=== PATIENT | male | born 1970 | race Caucasian/White ===

== ENCOUNTER 2025-07-26 18:21 | Emergency (ER) | payer OTHER, SELFPAY ==
--- NOTE | ~2025-07-26 | XR_ITS ---
CLINICAL HISTORY: knee pain 3 view right knee Comparison: None provided Findings: Bones intact. No dislocations. Mild/early tricompartmental degenerative changes. Small suprapatellar joint effusion. No radiopaque foreign body. IMPRESSION: 1. Small suprapatellar joint effusion. 2. No acute fracture or dislocation. This document has been electronically signed by: Dimple Seth DO on 07/26/2025 19:27:24
[2025-07-26 18:39] VITALS: BP 140/83; PULSE 93; RESP 20; TEMP 36.1; O2SAT 94; BMI 46.3
--- NOTE | 2025-07-26 18:40 | ED_ITS ---
HPI - Extremity Injury (Lower) General Chief Complaint: Extremity Injury, Lower Stated Complaint: injury to the rt knee Time Seen by Provider: 07/26/25 19:29 Source: patient and RN notes reviewed Mode of arrival: ambulatory Limitations: no limitations History of Present Illness ED Provider: Mirian Guillen PA-C HPI Narrative: This is a 54-year-old male, with no known medical problems, who presents emergency department with concerns of acute on chronic right knee pain. 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 He immediately had pain in his knee. He states pain with weight-bearing. He has not taken any medications prior to his arrival here in the emergency room. Pain worsens with weight-bearing. No other complaints or concerns at this time. MD complaint: knee injury Onset (ago): hour(s) Severity: moderate Relieving factors: rest Exacerbating factors: weight bearing and movement Associated symptoms: snap/pop sensation Other symptoms: none Related Data Previous Rx's ?Medication ?Instructions ?Recorded acetaminophen 500 mg tablet 1,000 mg (2 x 500 mg) PO Q 8H PRN 07/26/25 (Tylenol Extra Strength) pain #30 tabs ibuprofen 600 mg tablet 600 mg PO Q6H PRN pain #30 t abs 07/26/25 Allergies Allergy/AdvReac Type Severity Reaction Status Date / Time No Known Allergies Allergy Verified 07/26/25 18:39 Review of Systems Review of Systems: Constitutional : No Fever, No Chills ENT/Mouth : No sore throat, No Rhinorrhea Eyes: No Eye Pain, No Swelling, No Redness Cardiovascular : No Chest Pain, No SOB Respiratory : No Cough, No Sputum Gastrointestinal : No Nausea, No Vomiting, No Diarrhea, No abdominal Pain Genitourinary : No Dysuria, No Hematuria Musculoskeletal : + joint pain, No Myalgias, + Joint Swelling Skin : No Skin Lesions Neuro : No Weakness, No Numbness, No Headache All other systems reviewed and are negative Yes all other systems are reviewed and are negative Constitutional: Constitutional: Reports as per [facility] Past Medical History Attestation statement: The following information was validated with the patient. Social History Social History Advance Directives: No Advance Directives Information Provided: Yes Physical Exam Exam: Exam: General: Awake, alert, and oriented X3. No acute distress. HEENT: Normal inspection CVS: Normal heart rate and rhythm. Pulses normal. Respiratory: No respiratory distress Skin: Warm, dry, no rashes noted to exposed skin. Normal skin color. Normal skin turgor. Extremities: Right knee with TTP overlying the right lateral joint line, full flexion and extension. No joint laxity with varus and valgus strain. Negative anterior-posterior drawer test. Achilles tendon intact. No tenderness palpation along the calf. Neuro: Oriented X 3. No motor deficit. No sensory deficit. Vital Signs: Vital Signs: Last Vital Signs Temp 97.0 F 07/26/25 18:39 Pulse 93 07/26/25 18:39 Resp 20 07/26/25 18:39 BP 140/83 H 07/26/25 18:39 Pulse Ox 94 07/26/25 18:39 O2 Del Method Room Air 07/26/25 18:39 BMI result Body Mass Index 46.3 Const: General: cooperative, comfortable and no acute distress Orientation/consciousness: patient oriented x3 Limitations: no limitations HEENT: Head: Yes normal to inspection, Yes normocephalic and Yes atraumatic Ears: hearing grossly normal bilaterally General nose exam: Normal external nose present Face and sinus: Yes normal facial exam Mouth: Normal oral and palatal mucosa present, oropharynx normal and moist mucous membranes Throat: Yes posterior oropharynx normal Eyes: General: appearance normal, both eyes and all related structures Eyelids: Yes eyelids normal Conjunctivae: conjunctivae normal Sclerae: sclerae normal Pupils: Equal, round and reactive pupils present EOM: EOMs intact bilaterally Neck: Neck: Yes normal visual inspection, Yes full ROM and Yes no lymphadenopathy Lymphatic: no lymphadenopathy noted Chest: Chest palpation & inspection: normal inspection of the chest Resp: Effort & Inspection: normal respiratory effort and able to speak in complete sentences Auscultation: clear to auscultation bilaterally, no crackles, no rales, no rhonchi and no wheezes Cardio: Rate: regular rate Rhythm: regular rhythm Heart sounds: S1 normal heart sound present and S2 normal heart sound present GI: Inspection: Yes normal to inspection Skin: General skin exam: no rashes or lesions noted Trauma: no lacerations or abrasions Wounds: no wounds Neuro: General: patient oriented x3 and moves all extremities Cranial nerves: Yes Equal, round and reactive pupils present Extrem: General: Yes normal to inspection Right upper extremity: normal to inspection Left upper extremity: normal to inspection Right lower extremity: normal to inspection Left lower extremity: normal to inspection Medical Decision Making Medical Decision Making MDM Narrative: This is a 54-year-old male who presents emergency department with concerns of right knee pain. Patient felt popping sensation while stepping up. X-ray revealing small joint effusion, will discharged on ibuprofen, Tylenol, given orthopedic referral. Given strict return precautions, patient stable for discharge. Differential Diagnosis Differential Diagnoses: The differential diagnosis associated with the presentation includes Sprain, strain, contusion, fracture, dislocation Radiology Impression Discussion of test interpretation with radiology: I have reviewed the radiologist's reading. Radiologist Impression: Findings: Bones intact. No dislocations. Mild/early tricompartmental degenerative changes. Small suprapatellar joint effusion. No radiopaque foreign body. IMPRESSION: 1. Small suprapatellar joint effusion. 2. No acute fracture or dislocation. This document has been electronically signed by: Dimple Seth DO on 07/26/2025 19:27:24 Dictated By: Dimple Seth MD External Record Review External record reviewed: Inpatient record, Office record, Outpatient record, Prior outpatient labs, Prior outpatient radiology, Primary care record and Outside ED record Discharge Plan Discharge Clinical Impression: Knee strain Patient Disposition: Home, Self-Care Instructions: Knee Sprain (ED), Crutch Instructions (ED) Additional Instructions: You were seen in the ER due to right knee pain. Your xray does show some mild swelling in your knee pain. Please rest, ice, and elevate your knee. Using Valerio wrap can be beneficial to help decrease inflammation. Use crutches as needed for weight-bearing. I am giving you a referral to the software test specialist, please call to make an appointment. Take ibuprofen and or Tylenol as needed for pain and symptoms. If any new or worsening symptoms occur please seek emergent care. Prescriptions: New ibuprofen 600 mg tablet 600 mg PO Q6H PRN (Reason: pain) Qty: 30 0RF acetaminophen [Tylenol Extra Strength] 500 mg tablet 1,000 mg PO Q8H PRN (Reason: pain) Qty: 30 0RF [place] [facility] [place] [facility] [place] Group] Stand Alone Forms: Work/School Release Print Language: Thai
--- OUTSIDE RECORDS SUMMARY | 2025-07-26 19:49 | XMS_ITS | Encounter Summary ---
Author Organization [facility] Address [address] [place] [phone] Phone Care Team Providers Care Manager Aviation Name Role Phone Howie Kauffman MD Primary Care Provider Encounter Details Date Type Department Care Team (Late st Contact Info) Description 04/05/2023 Procedure Pass [facility] Endoscopy Admitting Dept Virtual Department [address] [place] [address] Social History Tobacco Use Types Packs/Day Years Used Date Smoking Tobacco: Never Smokeless Tobacco: Never Alcohol Use Standard Drinks/Week Comments Not Currently 0 (1 standard drink = 0.6 oz pur e alcohol) Education Answer Date Recorded Are you interested in more education? Not on anita e 01/29/2023 Are you concerned about learning? Not on file 01/29/2023 No 01/29/2023 No 01/29/2023 Digital Access Answer Date Recorded No 02/27/2023 No 02/27/2023 Reliable internet access at home? Not on file 02/27/2023 Device with a working camera? Not on file Sex and Gender Information Value Date Recorded Sex Assigned at Male 01/06/2020 1:33 AM EDT Legal Sex Male 10:58 AM EDT Gender Identity Male 01/06/2020 1:33 AM EDT Sexual Orientation Straight 01/06/2020 1: 33 AM EDT documented as of this encounter Plan of Treatment Not on file documented as of this encounter Visit Diagnoses Not on filedocumented in this encounter Care Teams Manager Aviation Relationship Specialty Start Date End Date Howie Kauffman MD [address] [place] [id number] PCP - General Internal Medicine 02/18/21 documented as of this encounter Additional Source Comments The information contained in this document represents components of the legal health record. It is not the complete legal health record.[facility]
--- OUTSIDE RECORDS SUMMARY | 2025-07-26 19:49 | XMS_ITS | Encounter Summary ---
Author Organization [facility] Address [address] [facility] [facility] [address] [facility] [address] [place] [phone] Phone Care Team Providers Care Beef Pusher Name Role Phone Howie Kauffman MD Primary Care Provider Encounter Details Date Type Department Care Team (Late st Contact Info) Description 10/18/2023 Procedure Pass [facility]oscopy Admitting Dept Virtual Department [address] [place] [address] Social History Tobacco Use Types Packs/Day Years [...] on filedocumented in this encounter Care Teams Beef Pusher Relationship Specialty Start Date End Date Howie Kauffman MD [address] [place] [phone] PCP - General Internal Medicine 02/18/21 documented as of this encounter Additional Source Comments The information contained in this document represents components of the legal health record. It is not the complete legal health record.[facility]
--- OUTSIDE RECORDS SUMMARY | 2025-07-26 19:49 | XMS_ITS | Clinical Summary ---
Author Organization [facility] Address [address] [place] [address] Phone Care Team Providers Care Statue Maker Name Role Phone Howie Kauffman MD Primary Care Provider Allergies No known active allergies Medications omeprazole (PRILOSEC) 20 MG capsule Take 20 mg by mouth daily as needed. 02/11/2022 Active Encounters Date Type Department Care Team Description 07/02/2025 [facility] [place] [facility] GENERATED External System Generated Encounter [address] [place] [address] Unknown, Unknown, from Last 3 Months Social History Tobacco Use Types Packs/Day Years [...] Orientation Straight 01/06/2020 1: 33 AM EDT Last Filed Vital Signs Vital Sign Reading Time Taken Comments Blood Pressure 128/83 01/06/2020 1:30 AM EDT Pulse 97 01/06/2020 1:30 AM EDT Temperature 38 C (100.4 F) 01/06/2020 1:30 AM EDT Respiratory Rate 18 01/06/2020 1:30 AM EDT Oxygen Saturation 96% 01/06/2020 1:30 AM EDT Inhaled Oxygen Concentration - - Weight 123.4 kg (272 lb) 07/16/2022 9:40 AM EDT Height 167.6 cm (5' 6 ) 07/16/2022 9:40 AM EDT Body Mass Index 43.9 07/16/2022 9:40 AM EDT Plan of Treatment Health Maintenance Due Date Last Done Comments LIPID PANEL 1971 DEPRESSION SCREENING 1983 HEPATITIS C SCREENING 12/21/1989 HIV ONE-TIME SCREENING (18-65 YEARS) 12/21/1989 COLOGUARD 12/21/2016 COLONOSCOPY 12/21/2016 COLORECTAL CANCER SCREENING 12/21/2016 FIT TEST 12/21/2016 FOBT 12/21/2016 SIGMOIDOSCOPY 12/21/2016 VIRTUAL COLONOSCOPY 12/21/2016 PNEUMOCOCCAL VACCINES (50+ years) (1 of 1 - PCV) 12/21/2021 ZOSTER VACCINES (1 of 2) 12/21/2021 Adult Td,Tdap Booster 12/05/2022 12/05/2012 INFLUENZA VACCINE (#1) 2025 2, 06/29/2019, 08/29/2018, Additional history exists COVID-19 VACCINE ( - 2024- season) 2025 10/22/2021, 11/08/2020, 10/11/2020 RSV VACCINE (1 - 1-dose 75+ series) 12/21/2046 SMOKING STATUS SCREENING (Once After 26 Yrs) Completed 07/16/2022 HEPATITIS A VACCINES Aged Out No long er eligible based on patient's age to complete this topic HIB VACCINES Aged Out No longer eligi ble based on patient's age to complete this topic MENINGOCOCCAL VACCINES (ACWY) Aged Out No longer eligible based on patient's age to complete this topic MENINGOCOCCAL VACCINES (B) Aged Out N o longer eligible based on patient's age to complete this topic Medical Devices Not on file Insurance [facility] [place] [id number] Care Teams Statue Maker Relationship Specialty Start Date End Date Howie Kauffman MD [address] [place] [id number] PCP - General Internal Medicine 02/18/21 Additional Source Comments The information contained in this document represents components of the legal health record. It is not the complete legal health record.[facility]
--- NOTE | 2025-07-26 19:50 | PC.NURSE ---
papa wraps applied to RLE. pt provided w/ crutch training. tolerated well.
[2025-07-26 20:06] VITALS: BP 140/83; PULSE 93; RESP 20; TEMP 36.1; O2SAT 94
== END 2025-07-26 20:06 | disposition home or self-care (01) ==
PROVIDERS: Emergency Provider Emergency Medicine; PCP Internal Medicine
DX: M25.561 Pain in right knee (principal); S86.911A Strain of unspecified muscle(s) and tendon(s) at lower leg level, right leg, initial encounter; X58.XXXA Exposure to other specified factors, initial encounter; Y93.9 Activity, unspecified; Y92.9 Unspecified place or not applicable; Y99.9 Unspecified external cause status
CPT/HCPCS: 73564; 99282; 99283

== ENCOUNTER → 2025-07-26 18:43 | Outpatient (BNV) | payer MEDICAID, SELFPAY | PROVIDERS: Emergency Provider Emergency Medicine; PCP Internal Medicine; Visit Provider Radiology Diagnostic Radiology | DX: M25.461 Effusion, right knee (principal) | CPT/HCPCS: 73564 ==